=== PATIENT | female | born 1975 | race Caucasian/White ===

== ENCOUNTER 2020-03-15 08:28 | Emergency (ER) | payer MEDICARE ==
--- NOTE | 2020-03-15 09:05 | ERPHSYRPT ---
- History of Present Illness Time Seen by Provider: 03/15/20 08:37 Source: patient Patient Subjective Stated Complaint: Pt stated that when she woke this morning that she was dizzy Triage Nursing Assessment: Pt brought here to the ER by her partner, tachycardic, denies pain, pulses normal, right foot in a boot and states that she has 2 wounds that have MRSA, skin n/w/d, denies losing consciousness, pt reports that temitope arms have some numbness, doesn't appear to be in any distress Physician History: 44 yo wf w dizziness/lightheadedness x2.5hr. Pt denies focal weakness/BARRY/chest pain/dyspnea/fever/cough/coryza/otalgia/ringing-roaring in ears. Dizziness worse w movement. She has no h/o dizziness and currently is being treated for R foot ulcer. Timing/Duration: other (2.5hr) Severity: mild Deficits: off balance Baseline/Normal Cognition: alert oriented x 3 Current Cognition: alert oriented x 3 Baseline Gait: walks w/o assistance Associated Symptoms: No confusion, No fatigue, No fever, No chills, No loss of consciousness, No nausea, No vomiting, No weakness, No insomnia, No muscle spasms, No numbness/tingling in legs/feet, No paresthesia, No ringing in ears, N o seizures, No slurred speech, No trouble walking, No vision changes, No chest pain, No headache Allergies/Adverse Reactions: codeine Allergy (Verified 03/15/20 08:47) unknown self - father " very severe" pseudoephedrine HCl [From Actifed] Allergy (Verified 03/15/20 08:47) severe rash triprolidine HCl [From Actifed] Allergy (Verified 03/15/20 08:47) severe rash azithromycin Adverse Reaction (Verified 03/15/20 08:48) erythromycin base Adverse Reaction (Verified 03/15/20 08:48) Home Medications: Albuterol 8 gm Mdi Hfa [Ventolin Hfa MDI] 2 puffs IH BID 01/16/16 [History] Cyclobenzaprine HCl 10 mg [Flexeril 10 MG] 10 mg PO TID 01/16/16 [History] Furosemide 20 mg [Lasix 20 mg] 80 mg PO DAILY 01/16/16 [History] Glipizide 2.5 mg [Glucotrol Xl 2.5 MG] 15 mg PO DAILY 01/16/16 [History] Nintedanib Esylate [Ofev] 150 mg PO BID 01/16/16 [History] Olanzapine [Olanzapine Odt] 15 mg PO DAILY 01/16/16 [History] Potassium Chloride 10 Meq Tab* [Klor Con 10 MEQ] 20 meq PO DAILY 01/16/16 [History] Pravastatin Sodium 40 mg PO DAILY 01/16/16 [History] Prednisone 10 mg [Deltasone 10 mg] 5 mg PO DAILY 01/16/16 [History] lisinopriL [Prinivil] 20 mg PO DAILY 01/16/16 [History] Duloxetine HCl 30 mg [Cymbalta 30 MG Capsule] 60 mg PO HS 01/06/20 [History] Hydrocodone/APAP 5-325 Tab^^^ [[place] 5-325 Tablet^^^] 1 each PO BID MDD 6 01/06/20 [History] Doxepin HCl 75 mg PO HS 01/08/20 [History] Ergocalciferol (Vitamin D2) [Vitamin D2] 1,000 mcg PO UD 01/08/20 [History] Fluticasone/Salmeterol [Advair 250-50 Diskus] 1 each IH DAILY 01/08/20 [History] Hydroxychloroquine Sulfate [Plaquenil] 400 mg PO DAILY 01/08/20 [History] Insulin Aspart [Novolog] 15 unit SQ ACHS 01/08/20 [History] Insulin Detemir [Levemir] 30 unit SQ HS 01/08/20 [History] Multivitamin [Multivitamins] 1 each PO DAILY 01/08/20 [History] Omeprazole 40 mg PO DAILY 01/08/20 [History] Sitagliptin Phosphate 50 MG [Januvia 50 MG] 50 mg PO DAILY 01/08/20 [History] Upadacitinib [Rinvoq ER] 15 mg PO DAILY 01/08/20 [History] Gabapentin 100 mg PO TID 01/19/20 [History] Alendronate Sodium 70 mg [Fosamax 70 MG] 70 mg PO WEEKLY 03/15/20 [History] Diphenoxylate HCl/Atropine [Lomotil 2.5-0.025 mg Tablet] 1 tab PO UD PRN 03/15/20 [History] Travel Risk - International Travel Have you traveled outside of the country in past 3 weeks: No - Coronavirus Screening Are you exhibiting any of the following symptoms?: No Close contact with a COVID-19 positive Pt in past 14-21 Days: No - Review of Systems Constitutional: No Symptoms Eyes: No Symptoms Ears, Nose, & Throat: No Symptoms Respiratory: No Symptoms Cardiac: No Symptoms Abdominal/Gastrointestinal: No Symptoms Genitourinary Symptoms: No Symptoms Musculoskeletal: No Symptoms Skin: No Symptoms Neurological: Dizziness, No Focal Weakness, No Gait Changes, No Headache, No Irritability, No Lethargy, No Paralysis, No Parasthesia, No Seizure, No Sensory Changes, No Speech Changes, No Tics, No Tremors, No Vertigo Psychological: No Symptoms Endocrine: No Symptoms Hematologic/Lymphatic: No Symptoms Immunological/Allergic: No Symptoms All Other Systems: Reviewed and Negative - Past Medical History Pertinent Past Medical History: Yes Neurological History: No Pertinent History ENT History: No Pertinent History Cardiac History: Congestive Heart Failure, High Cholesterol, Hypertension Respiratory History: Other Endocrine Medical History: Diabetes Type II Musculoskeletal History: Rheumatoid Arthritis, Other GI Medical History: No Pertinent History History: Renal Disease Psycho-Social History: Anxiety, Depression Female Reproductive Disorders: No Pertinent History Other Medical History: PULMONARY FIBROSIS - USES 2L 02 CONTINUOUS AND USES CPAP AT NIGHT. RUPTURED DISC AT L4-5 20 YEARS AGO. - Past Surgical History Past Surgical History: Yes Neuro Surgical History: No Pertinent History Cardiac: No Pertinent History Respiratory: Chest Surgery Gastrointestinal: No Pertinent History Genitourinary: No Pertinent History Musculoskeletal: No Pertinent History Female Surgical History: No Pertinent History Other Surgical History: back surgery. anal fistula, abscess. VATS BX - Social History Smoking Status: Former smoker Exposure to second hand smoke: No Drug Use: none Patient Lives Alone: No - Female History Hx Now: No - Nursing Vital Signs Nursing Vital Signs: Initial Vital Signs Temperature 97.6 F 03/15/20 08:32 Pulse Rate 107 H 03/15/20 08:32 Blood Pressure 122/83 03/15/20 08:32 O2 Sat by Pulse Oximetry 100 03/15/20 08:32 Pain Scale Pain Intensity 0 - Isauro Coma Scale Best Eye Response ([place]): (4) open spontaneously Best Verbal Response (Isauro): (5) oriented Best Motor Response ([place]): (6) obeys commands [place] Total: 15 - Physical Exam General Appearance: no apparent distress Eye Exam: bilateral eye: normal inspection, PERRL, EOMI Ears, Nose, Throat Exam: normal ENT inspection, TMs normal, pharynx normal, moist mucous membranes Neck Exam: normal inspection, non-tender, supple, full range of motion, No meningismus, No mass, No Brudzinski Respiratory: normal breath sounds, lungs clear, airway intact Cardiovascular: tachycardia Gastrointestinal: soft, normal bowel sounds, No tenderness (Morbidly obese) Back Exam: normal inspection Extremity Exam: other (Walking boot RLE/Walking boot removed, foot ulcer x2, appear stable, no erythema or discharge) Peripheral Pulses: carotid (R): 2+, carotid (L): 2+ Mental Status: alert, oriented x 3, cooperative, No agitated, 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 Exam: normal hearing, normal speech, PERRL, No abnormal eye position, No abnormal gag reflex, No abnormal pupil position, No abnormal speech, No facial asymmetry, No facial droop, No facial paresthesias, No gaze palsy, No hearing deficit (R), No hearing deficit (L), No tongue deviation to R, No tongue deviation to L, No tongue midline Coordination/Gait: normal finger to nose Motor/Sensory: no motor deficit, no sensory deficit, no pronator drift DTR: bicep (R): 2+, bicep (L): 2+, knee (R): 2+, knee (L): 2+ Skin Exam: normal color, warm, dry, No rash SpO2 Interpretation: normal SpO2: 100 O2 Delivery: Room Air - Course EKG Interpreted by Me: RATE (R108/Sinus Tach/Poor R wave progression/Normal QT- QTc) - Radiology Exams Chest X-ray Interpretation: Discussed w/ radiologist (Nothing acute) - CT Exams Head CT Interpretation: Discussed w/radiologist (Nothing acute) Chest CT Interpretation: Discussed w/radiologist (Chronic diffuse alveolar opacities) Ordered Tests: Active Orders 24 hr Category Date Time Status EKG-ER Only STAT Care 03/15/20 08:42 Active IV Insertion STAT Care 03/15/20 08:42 Active CHEST 1 VIEW (PORTABLE) Stat Exams 03/15/20 10:16 Completed CHEST WITHOUT CONTRAST [CT] Stat Exams 03/15/20 10:21 Completed HEAD WITHOUT CONTRAST [CT] Stat Exams 03/15/20 08:43 Completed MRI BRAIN W/O CONTRAST [MRI] Stat Exams 03/15/20 11:13 Completed CBC W DIFF Stat Lab 03/15/20 09:20 Completed CMP Stat Lab 03/15/20 09:20 Completed Lactic Acid Routine Lab 03/15/20 12:47 Completed Lactic Acid Stat Lab 03/15/20 10:00 Completed PROTIME WITH INR Stat Lab 03/15/20 09:20 Completed PTT Stat Lab 03/15/20 09:20 Completed TROPONIN Q3H Lab 03/15/20 09:20 Completed TROPONIN Q3H Lab 03/15/20 12:38 Completed TROPONIN Q3H Lab 03/15/20 14:45 Ordered TROPONIN Q3H Lab 03/15/20 17:45 Ordered TROPONIN Q3H Lab 03/15/20 20:45 Ordered UA W/RFX UR CULTURE Stat Lab 03/15/20 09:34 Completed Medication Summary Generic Name Dose Route Start Last Admin Trade Name Freq PRN Reason Stop Dose Admin Ceftriaxone Sodium 1,000 mg/ 100 mls @ 100 mls/hr 03/15/20 13:18 03/15/20 13:19 Sodium Chloride IV 03/15/20 14:17 Not Given STAT ONE Ceftriaxone Sodium/Dextrose 1 g in 50 mls @ 100 mls/hr 03/15/20 13:19 03/15/20 13:24 Rocephin 1 Gm-D5w 50 Ml Bag IV 03/15/20 13:48 100 ml/hr STAT STA 100 mls/hr Administration Discontinued Medications Generic Name Dose Route Start Last Admin Trade Name Freq PRN Reason Stop Dose Admin Sodium Chloride 1,000 mls @ 999 mls/hr 03/15/20 10:38 03/15/20 12:13 Sodium Chloride 0.9% 1000 Ml IV 03/15/20 11:38 Infused .Q1H1M STA Infusion Sodium Chloride Confirm 03/15/20 11:08 Sodium Chloride 0.9% 1000 Ml Administered 03/15/20 11:09 Dose 1,000 mls @ ud .ROUTE .STK-MED ONE Ceftriaxone Sodium/Dextrose Confirm 03/15/20 13:22 Rocephin 1 Gm-D5w 50 Ml Bag Administered 03/15/20 13:23 Dose 1 g in 50 mls @ ud IV .STK-MED ONE Lab/Rad Data: Laboratory Result Diagrams 03/15/20 09:20 03/15/20 09:20 Laboratory Results 03/15/20 03/15/20 03/15/20 Range/Units 12:47 12:38 10:00 WBC (4.0-10.5) K/mm3 RBC (4.1-5.4) M/mm3 Hgb (12.0-16.0) gm/dl Hct (35-47) % MCV (78-100) fl MCH (26-32) pg MCHC (32-36) g/dl RDW (11.5-14.0) % Plt Count (150-450) K/mm3 MPV (7.5-11.0) fl Gran % (36.0-66.0) % Eos # (Auto) (0-0.5) Absolute Lymphs (auto) (1.0-4.6) Absolute Monos (auto) (0.0-1.3) Lymphocytes % (24.0-44.0) % Monocytes % (0.0-12.0) % Eosinophils % (0.00-5.0) % Basophils % (0.0-0.4) % Absolute Granulocytes (1.4-6.9) Basophils # (0-0.4) PT (9.95-12.35) SECONDS INR (0.8-3.0) APTT (25.3-37.0) SECONDS Sodium (137-145) mmol/L Potassium (3.5-5.1) mmol/L Chloride (98-107) mmol/L Carbon Dioxide (22-30) mmol/L Anion Gap (5-15) MEQ/L BUN (7-17) mg/dL Creatinine (0.52-1.04) mg/dL Estimated GFR ML/MIN Glucose (74-106) mg/dL Lactic Acid 1.6 2.7 H (0.4-2.0) Calcium (8.4-10.2) mg/dL Total Bilirubin (0.2-1.3) mg/dL AST (14-36) U/L ALT (0-35) U/L Alkaline Phosphatase (38-126) U/L Troponin I < 0.012 (0.000-0.034) ng/mL Serum Total Protein (6.3-8.2) g/dL Albumin (3.5-5.0) g/dL Urine Color (YELLOW) Urine Appearance (CLEAR) Urine pH (5-6) Ur Specific [place] (1.005-1.025) Urine Protein (Negative) Urine Ketones (NEGATIVE) Urine Blood (0-5) Kelvin/ul Urine Nitrite (NEGATIVE) Urine Bilirubin (NEGATIVE) Urine Urobilinogen (0-1) mg/dL Ur Leukocyte Esterase (NEGATIVE) Urine WBC (Auto) (0-5) /HPF Urine RBC (Auto) (0-2) /HPF U Hyaline Cast (Auto) (0-2) /LPF U Epithel Cells (Auto) (FEW) /HPF Urine Bacteria (Auto) (NEGATIVE) /HPF Urine Mucus (Auto) (NEGATIVE) /HPF Urine Culture Reflexed (NO) Urine Glucose (NEGATIVE) mg/dL Slides for Path Review 03/15/20 03/15/20 03/15/20 Range/Units 09:34 09:20 09:20 WBC (4.0-10.5) K/mm3 RBC (4.1-5.4) M/mm3 Hgb (12.0-16.0) gm/dl Hct (35-47) % MCV (78-100) fl MCH (26-32) pg MCHC (32-36) g/dl RDW (11.5-14.0) % Plt Count (150-450) K/mm3 MPV (7.5-11.0) fl Gran % (36.0-66.0) % Eos # (Auto) (0-0.5) Absolute Lymphs (auto) (1.0-4.6) Absolute Monos (auto) (0.0-1.3) Lymphocytes % (24.0-44.0) % Monocytes % (0.0-12.0) % Eosinophils % (0.00-5.0) % Basophils % (0.0-0.4) % Absolute Granulocytes (1.4-6.9) Basophils # (0-0.4) PT 12.4 H (9.95-12.35) SECONDS INR 1.10 (0.8-3.0) APTT 29.2 (25.3-37.0) SECONDS Sodium (137-145) mmol/L Potassium (3.5-5.1) mmol/L Chloride (98-107) mmol/L Carbon Dioxide (22-30) mmol/L Anion Gap (5-15) MEQ/L BUN (7-17) mg/dL Creatinine (0.52-1.04) mg/dL Estimated GFR ML/MIN Glucose (74-106) mg/dL Lactic Acid (0.4-2.0) Calcium (8.4-10.2) mg/dL Total Bilirubin (0.2-1.3) mg/dL AST (14-36) U/L ALT (0-35) U/L Alkaline Phosphatase (38-126) U/L Troponin I 0.013 (0.000-0.034) ng/mL Serum Total Protein (6.3-8.2) g/dL Albumin (3.5-5.0) g/dL Urine Color YELLOW (YELLOW) Urine Appearance SLIGHTLY CLOUDY (CLEAR) Urine pH 5.0 (5-6) Ur Specific [place] 1.012 (1.005-1.025) Urine Protein NEGATIVE (Negative) Urine Ketones NEGATIVE (NEGATIVE) Urine Blood NEGATIVE (0-5) Kelvin/ul Urine Nitrite NEGATIVE (NEGATIVE) Urine Bilirubin NEGATIVE (NEGATIVE) Urine Urobilinogen NEGATIVE (0-1) mg/dL Ur Leukocyte Esterase TRACE (NEGATIVE) Urine WBC (Auto) 3-5 (0-5) /HPF Urine RBC (Auto) 3-5 (0-2) /HPF U Hyaline Cast (Auto) >50 (0-2) /LPF U Epithel Cells (Auto) FEW (FEW) /HPF Urine Bacteria (Auto) RARE (NEGATIVE) /HPF Urine Mucus (Auto) SLIGHT (NEGATIVE) /HPF Urine Culture Reflexed NO (NO) Urine Glucose NEGATIVE (NEGATIVE) mg/dL Slides for Path Review 03/15/20 03/15/20 Range/Units 09:20 09:20 WBC 19.5 H (4.0-10.5) K/mm3 RBC 4.13 (4.1-5.4) M/mm3 Hgb 11.9 L (12.0-16.0) gm/dl Hct 38.1 (35-47) % MCV 92.3 (78-100) fl MCH 28.8 (26-32) pg MCHC 31.2 L (32-36) g/dl RDW 14.7 H (11.5-14.0) % Plt Count 539 H (150-450) K/mm3 MPV 9.4 (7.5-11.0) fl Gran % 78.9 H (36.0-66.0) % Eos # (Auto) 0.02 (0-0.5) Absolute Lymphs (auto) 2.29 (1.0-4.6) Absolute Monos (auto) 1.73 H (0.0-1.3) Lymphocytes % 11.8 L (24.0-44.0) % Monocytes % 8.9 (0.0-12.0) % Eosinophils % 0.1 (0.00-5.0) % Basophils % 0.3 (0.0-0.4) % Absolute Granulocytes 15.39 H (1.4-6.9) Basophils # 0.05 (0-0.4) PT (9.95-12.35) SECONDS INR (0.8-3.0) APTT (25.3-37.0) SECONDS Sodium 132 L (137-145) mmol/L Potassium 4.2 (3.5-5.1) mmol/L Chloride 92 L (98-107) mmol/L Carbon Dioxide 29 (22-30) mmol/L Anion Gap 14.6 (5-15) MEQ/L BUN 36 H (7-17) mg/dL Creatinine 1.87 H (0.52-1.04) mg/dL Estimated GFR 30.8 ML/MIN Glucose 182 H (74-106) mg/dL Lactic Acid (0.4-2.0) Calcium 9.4 (8.4-10.2) mg/dL Total Bilirubin 0.50 (0.2-1.3) mg/dL AST 29 (14-36) U/L ALT 31 (0-35) U/L Alkaline Phosphatase 63 (38-126) U/L Troponin I (0.000-0.034) ng/mL Serum Total Protein 8.0 (6.3-8.2) g/dL Albumin 4.3 (3.5-5.0) g/dL Urine Color (YELLOW) Urine Appearance (CLEAR) Urine pH (5-6) Ur Specific [place] (1.005-1.025) Urine Protein (Negative) Urine Ketones (NEGATIVE) Urine Blood (0-5) Kelvin/ul Urine Nitrite (NEGATIVE) Urine Bilirubin (NEGATIVE) Urine Urobilinogen (0-1) mg/dL Ur Leukocyte Esterase (NEGATIVE) Urine WBC (Auto) (0-5) /HPF Urine RBC (Auto) (0-2) /HPF U Hyaline Cast (Auto) (0-2) /LPF U Epithel Cells (Auto) (FEW) /HPF Urine Bacteria (Auto) (NEGATIVE) /HPF Urine Mucus (Auto) (NEGATIVE) /HPF Urine Culture Reflexed (NO) Urine Glucose (NEGATIVE) mg/dL Slides for Path Review YES - Progress Progress: improved Progress Note: 03/15/20 12:49 MRI Brain neg per Rad Dizziness resolved wo treatment 03/15/20 12:55 Pt's LA declined after 1L NS bolus. Leukocytosis most likely due to steroids for RA, as only evidence of infection is a few WBC's in urine. Pt states that she has chronic uti's and was recently treated. She is currently on keflex for her R foot ulcers. 03/15/20 13:30 Pt given 1gm IV rocephin before discharge. Counseled pt/family regarding: lab results, diagnosis, need for follow-up, rad results - Departure Departure Disposition: Home Clinical Impression: Dizziness, nonspecific, Leukocytosis, Elevated lactic acid level Condition: Stable Critical Care Time: No Referrals: KIRSTEN SCRUGGS [Primary Care Provider] - Instructions: Vertigo (a Type of Dizziness) (DC), Dizziness, Nonvertigo, (DC) Additional Instructions: Follow up with your family MD Return to ER for focal weakness/Temperature greater than 100.5/Chest pain/shortness of breath
--- NOTE | 2020-03-15 09:25 | XRAY ---
Indication: Lightheaded and dizziness. Multiple contiguous axial images obtained through the head without contrast. Comparison: None Normal appearing brain parenchyma, ventricles, and bony calvarium. Partial opacification of right mastoid air cells presumed inflammatory. Remaining visualized paranasal sinuses and left mastoid air cells are clear. Impression: Partial opacification right mastoid air cells presumed inflammatory. Remaining CT head without contrast exam is normal.
[2020-03-15 09:32] LABS: Absolute Neutrophil Ct (ANC) 15.39 (1.4-6.9); BASOPHIL % 0.3 % (0.0-0.4); Basophil (Absolute #) 0.05 (0-0.4); Eosinophil % 0.1 % (0.00-5.0); Eosinophil (Absolute #) 0.02 (0-0.5); Hematocrit 38.1 % (35-47); Hemoglobin 11.9 gm/dl (12.0-16.0); Lymphocyte (Absolute #) 2.29 (1.0-4.6); Lymphocytes % 11.8 % (24.0-44.0); Mean Cell Volume 92.3 fl (78-100); Mean Corpuscular Hemoglobin 28.8 pg (26-32); Mean Corpuscular Hgb Concent. 31.2 g/dl (32-36); Mean Platelet Volume 9.4 fl (7.5-11.0); Monocyte (Absolute #) 1.73 (0.0-1.3); Monocytes % 8.9 % (0.0-12.0); Neutrophil % 78.9 % (36.0-66.0); Platelet Count 539 K/mm3 (150-450); Red Blood Count 4.13 M/mm3 (4.1-5.4); Red Cell Distribution Width 14.7 % (11.5-14.0); White Blood Count 19.5 K/mm3 (4.0-10.5)
[2020-03-15 09:44] LABS: INR 1.1 (0.8-3.0); PROTIME 12.4 SECONDS (9.95-12.35)
[2020-03-15 09:47] LABS: PTT 29.2 SECONDS (25.3-37.0)
[2020-03-15 09:48] LABS: ALBUMIN 4.3 g/dL (3.5-5.0); ANION GAP 14.6 MEQ/L (5-15); BILIRUBIN,TOTAL 0.5 mg/dL (0.2-1.3); Calcium 9.4 mg/dL (8.4-10.2); Creatinine 1 1.87 mg/dL (0.52-1.04); EST GLOMERULAR FILTRATION RATE 30.8 ML/MIN; Potassium 4.2 mmol/L (3.5-5.1)
[2020-03-15 10:12] LABS: Appearance SLIGHTLY CLOUDY (CLEAR); Bacteria RARE /HPF (NEGATIVE); Bilirubin NEGATIVE (NEGATIVE); Blood NEGATIVE Ery/ul (0-5); Epithelial Cells FEW /HPF (FEW); Glucose NEGATIVE (NEGATIVE); Hyaline Casts >50 /LPF (0-2); Ketones NEGATIVE (NEGATIVE); Leukocyte Esterase TRACE (NEGATIVE); Mucus SLIGHT /HPF (NEGATIVE); Nitrite NEGATIVE (NEGATIVE); Protein,Urine Dip NEGATIVE (Negative); Specific Gravity 1.012 (1.005-1.025); Urobilinogen NEGATIVE mg/dL (0-1)
--- NOTE | 2020-03-15 10:52 | XRAY ---
Indication: Leukocytosis. Comparison: None Portable chest demonstrates diffuse interstitial alveolar opacities without consolidation/large effusion. Heart is not enlarged. Bony thorax intact with mild degenerative changes.
--- NOTE | 2020-03-15 10:57 | XRAY ---
Indication: Leukocytosis. Multiple contiguous axial images obtained through the chest without contrast as ordered. Comparison: February 04, 2015. Lungs again demonstrates chronic appearing diffuse patchy interstitial alveolar opacities without consolidation or large effusion. Heart is not enlarged. Aorta again mildly arteriosclerotic without aneurysm. No pathologic mediastinal lymphadenopathy. Bony thorax intact again with mild degenerative changes throughout the spine. Limited upper abdomen again demonstrates mild fatty liver and 2 cm gallstone. Impression: Stable CT chest without contrast exam again demonstrating chronic appearing diffuse bilateral interstitial alveolar opacities, fatty liver, and cholelithiasis.
[2020-03-15] MEDS ORDERED: Sodium Chloride 0.9% 1000 ML 1,000 ML ONE (11:08)
[2020-03-15] MEDS: Sodium Chloride 0.9% 1000 ML 1,000 ML IV STA (11:09)
[2020-03-15 11:19] LABS: Slide Review 1 YES
--- NOTE | 2020-03-15 12:43 | XRAY ---
Indication: Dizziness. Near-syncope. Sagittal, coronal, and axial MRI brain was performed without contrast using T1, T2, FLAIR, diffusion, and ADC sequences. Comparison: None Ventriculosulcal pattern appears symmetric. Anatomic variant for empty sella. No acute intracranial hemorrhage, abnormal extra-axial fluid collection, or mass effect. Diffusion images are negative for restricted signal. Fourth ventricle is midline without hydrocephalus. 7/8 cranial nerve complex bilaterally symmetric. Normal flow void signal within the major intracerebral circulation. Normal appearing craniocervical junction. Paranasal sinuses are clear. Minimal fluid signal in the right mastoid air cells presumed inflammatory. Impression: 1. Minimal fluid signal right mastoid air cells presumed inflammatory. 2. Remaining MRI brain without contrast exam is negative.
[2020-03-15] MEDS: Rocephin 1000 MG INJ** 1,000 MG in Sodium Chloride 0.9% 100 ML IVPB 100 ML IV ONE (13:19)
[2020-03-15] MEDS ORDERED: ROCEPHIN 1 Gm-D5w 50 ml Bag** 1 G/50 ML IVPB IV ONE (13:22)
[2020-03-15] MEDS: ROCEPHIN 1 Gm-D5w 50 ml Bag** 1 G/50 ML IVPB IV STA (13:24)
[2020-03-15 13:38] VITALS: BP 109/72; PULSE 100; O2SAT 99
== END 2020-03-15 13:46 | disposition home or self-care (01) ==
LOC: ED 08:28
DX: R42 Dizziness and giddiness (principal); R74.02 Elevation of levels of lactic acid dehydrogenase [LDH]; Z79.899 Other long term (current) drug therapy
CPT/HCPCS: 36000; 36415; 70450; 70551; 71045; 71250; 80053; 81001; 83605; 84484; 85025; 85610; 85730; 93005; 96360; 99284; J0696

== ENCOUNTER 2020-05-17 01:47 | Emergency (ER) | payer MEDICARE ==
[2020-05-17] MEDS ORDERED: Sodium Chloride 0.9% 1000 ML 1,000 ML IV SCH (02:00)
[2020-05-17] MEDS ORDERED: Sodium Chloride 0.9% 1000 ML 1,000 ML ONE ×3 (02:02→03:49)
[2020-05-17] MEDS ORDERED: solu-CORTEF 100MG IV ONE (02:06)
[2020-05-17] MEDS ORDERED: VANCOMYCIN 1 GRAM/200 ML BAG 1 GM/200 ML PIGGYBACK IV ONE ×2 (02:12→02:44)
[2020-05-17] MEDS ORDERED: Zosyn 3.375 GM Vial 3.375 GM in Sodium Chloride 100ML MINI-BAG PLUS 100 ML IV ONE (02:13)
[2020-05-17 02:35] LABS: ALBUMIN 3.6 g/dL (3.5-5.0); BILIRUBIN,TOTAL 0.9 mg/dL (0.2-1.3); Calcium 7.9 mg/dL (8.4-10.2); Creatinine 1 7.12 mg/dL (0.52-1.04); EST GLOMERULAR FILTRATION RATE 6.6 ML/MIN; MAGNESIUM 1.9 mg/dL (1.6-2.3); Total Protein 7.1 g/dL (6.3-8.2)
[2020-05-17] MEDS ORDERED: Zosyn 3.375 GM Vial IV ONE (02:43)
[2020-05-17] MEDS ORDERED: solu-CORTEF 100MG ONE (02:43)
[2020-05-17] MEDS ORDERED: Sodium Chloride 0.9% 100 ML IVPB 100 ML IV ONE (02:44)
--- NOTE | 2020-05-17 02:45 | ERPHSYRPT ---
- History of Present Illness Time Seen by Provider: 05/17/20 01:55 Source: patient, EMS Exam Limitations: no limitations Patient Subjective Stated Complaint: pt states she has had increasing weakness over the last few days. tonight she slid out of bed and was not able to get up off the floor. Triage Nursing Assessment: pt alert and oriented,, answers questions approp. pt arrive per wheelchair, was unable to move to stretcher per self. pt to stretcher with assist of 4. respirations nonlabored. Physician History: Patient is a 44-year-old female presents to our ED via EMS for evaluation of generalized weakness. Patient states she has been feeling progressively weak over the past few days. Patient was in her bed this evening when she slipped out of bed onto the floor. No injuries sustained. Patient states she was too weak to climb back into bed. 911 was notified. Patient required max assist x4 to get her onto the stretcher. Upon arrival patient looked weak and lethargic. Her extremities are mottled. Patient states she felt dizzy. No chest pain or shortness of breath. Patient states she has a history of chronic renal sufficiency. Symptoms are moderate in intensity. No specific worsening or impr oving factors. Patient voices no other complaints or concerns at this time. Patient advises that she has a history of pulmonary fibrosis. Patient requires 2 L nasal cannula 24 hours/day. Timing/Duration: day(s) Severity: severe (Days ago.) Modifying Factors: Improves With: nothing Associated Symptoms: weakness (Generalized weakness), No nausea, No vomiting, No abdominal pain, No shortness of breath, No heartburn, No diaphoresis, No cough, No chills, No chest pain, No fever, No headaches, No loss of appetite, No syncope, No seizure Allergies/Adverse Reactions: codeine Allergy (Verified 04/19/20 09:08) unknown self - father " very severe" pseudoephedrine HCl [From Actifed] Allergy (Verified 04/19/20 09:08) severe rash triprolidine HCl [From Actifed] Allergy (Verified 04/19/20 09:08) severe rash azithromycin Adverse Reaction (Verified 04/19/20 09:08) erythromycin base Adverse Reaction (Verified 04/19/20 09:08) Home Medications: Albuterol 8 gm Mdi Hfa [Ventolin Hfa MDI] 2 puffs IH BID 01/16/16 [History] Cyclobenzaprine HCl 10 mg [Flexeril 10 MG] 10 mg PO TID 01/16/16 [History] Furosemide 20 mg [Lasix 20 mg] 80 mg PO DAILY 01/16/16 [History] Glipizide 2.5 mg [Glucotrol Xl 2.5 MG] 15 mg PO DAILY 01/16/16 [History] Nintedanib Esylate [Ofev] 150 mg PO BID 01/16/16 [History] Olanzapine [Olanzapine Odt] 15 mg PO DAILY 01/16/16 [History] Potassium Chloride 10 Meq Tab* [Klor Con 10 MEQ] 20 meq PO DAILY 01/16/16 [History] Pravastatin Sodium 40 mg PO DAILY 01/16/16 [History] Prednisone 10 mg [Deltasone 10 mg] 5 mg PO DAILY 01/16/16 [History] lisinopriL [Prinivil] 20 mg PO DAILY 01/16/16 [History] Duloxetine HCl 30 mg [Cymbalta 30 MG Capsule] 60 mg PO HS 01/06/20 [History] Hydrocodone/APAP 5-325 Tab^^^ [[place] 5-325 Tablet^^^] 1 each PO BID MDD 6 01/06/20 [History] Doxepin HCl 75 mg PO HS 01/08/20 [History] Ergocalciferol (Vitamin D2) [Vitamin D2] 1,000 mcg PO UD 01/08/20 [History] Fluticasone/Salmeterol [Advair 250-50 Diskus] 1 each IH DAILY 01/08/20 [History] Hydroxychloroquine Sulfate [Plaquenil] 400 mg PO DAILY 01/08/20 [History] Insulin Aspart [Novolog] 15 unit SQ ACHS 01/08/20 [History] Insulin Detemir [Levemir] 30 unit SQ HS 01/08/20 [History] Multivitamin [Multivitamins] 1 each PO DAILY 01/08/20 [History] Omeprazole 40 mg PO DAILY 01/08/20 [History] Sitagliptin Phosphate 50 MG [Januvia 50 MG] 50 mg PO DAILY 01/08/20 [History] Upadacitinib [Rinvoq ER] 15 mg PO DAILY 01/08/20 [History] Gabapentin 100 mg PO TID 01/19/20 [History] Alendronate Sodium 70 mg [Fosamax 70 MG] 70 mg PO WEEKLY 03/15/20 [History] Diphenoxylate HCl/Atropine [Lomotil 2.5-0.025 mg Tablet] 1 tab PO UD PRN 03/15/20 [History] Calcium Carbonate/Vitamin D3 [Vitamin D-3 400 Units Tablet] 1 each PO BID 03/25/20 [History] Cyanocobalamin (Vitamin B-12) [Vitamin B12] 2,500 mcg PO DAILY 03/25/20 [History] Hx Tetanus, Diphtheria Vaccination/Date Given: No Hx Influenza Vaccination/Date Given: Yes Hx Pneumococcal Vaccination/Date Given: Yes Immunizations Up to Date: No Travel Risk - International Travel Have you traveled outside of the country in past 3 weeks: No - Coronavirus Screening Are you exhibiting any of the following symptoms?: Yes Symptoms: Shortness of Breath, Headaches/Body Aches/Fatigue Close contact with a COVID-19 positive Pt in past 14-21 Days: No - Review of Systems Constitutional: Other (Cool skin to touch.) Eyes: No Symptoms, No Discharge, No Tearing, No Vision Changes, No Foreign Body Sensation Ears, Nose, & Throat: No Symptoms, No Ear Discharge, No Hearing Changes, No Nose Discharge, No Sinus Drainage, No Mouth Swelling, No Throat Swelling, No Hoarse, No Painful Swallowing Respiratory: No Cough, No Stridor, No Wheezing Cardiac: No Chest Pain, No Edema, No Palpitations Abdominal/Gastrointestinal: No No Symptoms, No Abdominal Pain, No Nausea, No Vomiting, No Constipation, No Hematemesis Genitourinary Symptoms: No Symptoms Musculoskeletal: No Symptoms Skin: No Symptoms, Other (Sacral decubiti ulcers and right lower extremity chronic wound.) Neurological: Dizziness, No Focal Weakness Psychological: No Symptoms Hematologic/Lymphatic: No Symptoms Immunological/Allergic: No Symptoms All Other Systems: Unable due to condition - Past Medical History Pertinent Past Medical History: Yes Neurological History: No Pertinent History ENT History: No Pertinent History Cardiac History: High Cholesterol, Hypertension Respiratory History: Other Endocrine Medical History: Diabetes Type II, Liver Disease, Other Musculoskeletal History: Rheumatoid Arthritis GI Medical History: No Pertinent History History: Renal Disease Psycho-Social History: Anxiety, Depression Female Reproductive Disorders: No Pertinent History Other Medical History: CHRONIC KIDNEY DISEASE STAGE 2, BEING SENT TO HEPATIC SPECIALIST AFTER SONOGRAM OF LIVER SHOW FATTY OR FIBROTIC CHANGES. PULMONARY FIBROSIS X 6 YEARS USES O2 VIA NC @ 2 LITERS. - Past Surgical History Past Surgical History: Yes Neuro Surgical History: No Pertinent History Cardiac: No Pertinent History Respiratory: Chest Surgery Gastrointestinal: No Pertinent History Genitourinary: No Pertinent History Musculoskeletal: No Pertinent History Female Surgical History: No Pertinent History Other Surgical History: back surgery. anal fistula, abscess. VATS BX - Social History Smoking Status: Former smoker Exposure to second hand smoke: Yes Drug Use: none Patient Lives Alone: No - Female History Hx Last Menstrual Period: post Hx Now: No - Nursing Vital Signs Nursing Vital Signs: Initial Vital Signs Temperature 98.4 F 05/17/20 01:51 Pulse Rate 99 H 05/17/20 01:51 Respiratory Rate 20 05/17/20 01:51 Blood Pressure 77/63 05/17/20 01:51 O2 Sat by Pulse Oximetry 98 05/17/20 01:51 Pain Scale Pain Intensity 3 - Physical Exam General Appearance: obese, other (Patient appears weak and dehydrated.) Eye Exam: PERRL/EOMI Ears, Nose, Throat Exam: dry mucous membranes Neck Exam: normal inspection, supple, full range of motion, No non-tender Respiratory Exam: normal breath sounds, lungs clear, No chest tenderness, No respiratory distress Cardiovascular Exam: regular rate/rhythm Gastrointestinal/Abdomen Exam: soft, normal bowel sounds, No tenderness, No distention Back Exam: other (Multiple sacral pressure ulcer in various stages,) Extremity Exam: other (Extremities are cool to touch and mottled. Right lower extremity dressing intact), No calf tenderness, No deformities, No lacerations, No jose's sign Neurologic Exam: alert, oriented x 3, cooperative, aircraft designer II-XII nml as tested, normal mood/affect, sensation nml, No motor deficits, No sensory deficit Skin Exam: other (Skin cool to touch. Hands appear somewhat mottled. Sacral pressure ulcers in various stages of healing.) Lymphatic Exam: No adenopathy SpO2 Interpretation: normal SpO2: 100 O2 Delivery: Room Air - Course Nursing assessment & vital signs reviewed: Yes EKG Interpreted by Me: RATE (96), Sinus Rhythm, NORMAL AXIS, NORMAL INTERVALS - Radiology Exams Chest X-ray Interpretation: Teleradiologist Report (Distal pulmonary fibrosis. 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 Care 05/17/20 01:53 Active EKG-ER Only STAT Care 05/17/20 01:51 Active IV Insertion STAT Care 05/17/20 01:51 Active Pulse Oximetry (ED) STAT Care 05/17/20 01:51 Active CHEST 1 VIEW (PORTABLE) Stat Exams 05/17/20 01:53 Taken BLOOD CULTURE Stat Lab 05/17/20 02:45 Received CBC W DIFF Stat Lab 05/17/20 02:10 Completed CMP Stat Lab 05/17/20 02:10 Completed INFLUENZA A+B ALBER Stat Lab 05/17/20 02:45 Completed Lactic Acid Stat Lab 05/17/20 02:25 Completed Lactic Acid Stat Lab 05/17/20 04:26 Completed Lactic Acid Stat Lab 05/17/20 04:36 Received MAGNESIUM Stat Lab 05/17/20 02:10 Completed Manual Differential NC Stat Lab 05/17/20 02:10 Completed NT PRO BNP Stat Lab 05/17/20 02:10 Completed TROPONIN Q3H Lab 05/17/20 02:10 Completed TROPONIN Q3H Lab 05/17/20 05:00 Ordered TROPONIN Q3H Lab 05/17/20 08:00 Ordered TROPONIN Q3H Lab 05/17/20 11:00 Ordered TROPONIN Q3H Lab 05/17/20 14:00 Ordered TSH [TSH, 3RD Generation] Stat Lab 05/17/20 02:45 Completed UA W/RFX UR CULTURE Stat Lab 05/17/20 02:36 Ordered Medication Summary Generic Name Dose Route Start Last Admin Trade Name Freq PRN Reason Stop Dose Admin Sodium Chloride 1,000 mls @ 100 mls/hr 05/17/20 02:00 05/17/20 03:15 Sodium Chloride 0.9% 1000 Ml IV 06/16/20 01:59 100 mls/hr .Q10H BABAR Administration Sodium Bicarbonate 75 meq/ 1,075 mls @ 75 mls/hr 05/17/20 03:00 05/17/20 03:39 Dextrose/Sodium Chloride IV 06/16/20 02:59 75 ml/hr .[id number] BABAR 75 mls/hr Administration Norepinephrine 4,000 mcg/ 504 mls @ 37.8 mls/hr 05/17/20 03:17 05/17/20 04:16 Dextrose IV 06/16/20 03:16 5 mcg/min .[id number] PRN 37.8 mls/hr SEVERE HYPOTENSION Administration Protocol 5 MCG/MIN Discontinued Medications Generic Name Dose Route Start Last Admin Trade Name Freq PRN Reason Stop Dose Admin Calcium Gluconate 1,000 mg 05/17/20 02:56 05/17/20 03:33 Calcium Gluconate 10% 1000 Mg IV 05/17/20 02:57 1,000 mg STAT ONE Administration Calcium Gluconate Confirm 05/17/20 03:27 Calcium Gluconate 10% 1000 Mg Administered 05/17/20 03:28 Dose 1,000 mg IV .STK-MED ONE Dextrose 100 ml 05/17/20 03:01 05/17/20 04:00 D50w 50ml Vial IV 05/17/20 03:02 Not Given ONCE STA Dextrose Confirm 05/17/20 03:44 D50w 50 Ml Abboject Administered 05/17/20 03:45 Dose 100 ml IV .STK-MED ONE Dextrose 100 ml 05/17/20 03:46 05/17/20 03:47 D50w 50 Ml Abboject IV 05/17/20 03:47 100 ml STAT ONE Administration Hydrocortisone Sodium Succinate 100 mg 05/17/20 02:06 05/17/20 02:59 Solu-Cortef 100mg IV 05/17/20 02:07 100 mg STAT ONE Administration Hydrocortisone Sodium Succinate Confirm 05/17/20 02:43 Solu-Cortef 100mg Administered 05/17/20 02:44 Dose 100 mg .ROUTE .STK-MED ONE Vancomycin HCl 1 gm in 200 mls @ 125 mls/hr 05/17/20 02:12 05/17/20 03:00 Vancomycin 1 Gram/200 Ml Bag IV 05/17/20 03:47 125 mls/hr STAT ONE 125 mls/hr Administration Piperacillin Sod/Tazobactam 100 mls @ 200 mls/hr 05/17/20 02:13 05/17/20 02:56 Sod 3.375 gm/ Sodium Chloride IV 05/17/20 02:42 200 mls/hr STAT ONE Administration Sodium Chloride Confirm 05/17/20 02:44 Sodium Chloride 0.9% 100 Ml Ivpb Administered 05/17/20 02:45 Dose 100 mls @ ud IV .STK-MED ONE Vancomycin HCl Confirm 05/17/20 02:44 Vancomycin 1 Gram/200 Ml Bag Administered 05/17/20 02:45 Dose 1 gm in 200 mls @ ud IV .STK-MED ONE Dextrose/Sodium Chloride Confirm 05/17/20 03:30 Dextrose 5% -0.45 Nacl 1000 Ml Administered 05/17/20 03:31 Dose 1,000 mls @ ud IV .STK-MED ONE Insulin Human Regular 8 unit 05/17/20 03:02 05/17/20 04:00 Humulin R SQ 05/17/20 03:03 Not Given STAT ONE Insulin Human Regular 10 unit 05/17/20 03:40 05/17/20 03:47 Humulin R SQ 05/17/20 03:41 10 unit STAT ONE Administration Insulin Human Regular Confirm 05/17/20 03:43 Humulin R Administered 05/17/20 03:44 Dose 10 unit .ROUTE .STK-MED ONE Piperacillin Sod/Tazobactam Sod Confirm 05/17/20 02:43 Zosyn 3.375 Gm Vial Administered 05/17/20 02:44 Dose 3.375 gm IV .STK-MED ONE Sodium Bicarbonate Confirm 05/17/20 03:30 Sodium Bicarbonate 50 Meq/50 Ml Abboject Administered 05/17/20 03:31 Dose 100 meq IV .STK-MED ONE Lab/Rad Data: Laboratory Result Diagrams 05/17/20 02:10 05/17/20 02:10 Laboratory Results 05/17/20 05/17/20 05/17/20 Range/Units 04:26 02:45 02:45 WBC (4.0-10.5) K/mm3 RBC (4.1-5.4) M/mm3 Hgb (12.0-16.0) gm/dl Hct (35-47) % MCV (78-100) fl MCH (26-32) pg MCHC (32-36) g/dl RDW (11.5-14.0) % Plt Count (150-450) K/mm3 MPV (7.5-11.0) fl Sodium (137-145) mmol/L Potassium (3.5-5.1) mmol/L Chloride (98-107) mmol/L Carbon Dioxide (22-30) mmol/L Anion Gap (5-15) MEQ/L BUN (7-17) mg/dL Creatinine (0.52-1.04) mg/dL Estimated GFR ML/MIN Glucose (74-106) mg/dL Lactic Acid 1.4 (0.4-2.0) Calcium (8.4-10.2) mg/dL Magnesium (1.6-2.3) mg/dL Total Bilirubin (0.2-1.3) mg/dL AST (14-36) U/L ALT (0-35) U/L Alkaline Phosphatase (38-126) U/L Troponin I (0.000-0.034) ng/mL NT-Pro-B Natriuret Pep (0-450) pg/mL Serum Total Protein (6.3-8.2) g/dL Albumin (3.5-5.0) g/dL TSH 3rd Generation 1.390 (0.47-4.68) mIU/L Influenza Type A Ag POSITIVE (NEGATIVE) Influenza Type B Ag POSITIVE (NEGATIVE) 05/17/20 05/17/20 05/17/20 Range/Units 02:25 02:10 02:10 WBC 25.4 H* (4.0-10.5) K/mm3 RBC 3.92 L (4.1-5.4) M/mm3 Hgb 10.8 L (12.0-16.0) gm/dl Hct 34.1 L (35-47) % MCV 87.0 (78-100) fl MCH 27.6 (26-32) pg MCHC 31.7 L (32-36) g/dl RDW 14.8 H (11.5-14.0) % Plt Count 578 H (150-450) K/mm3 MPV 10.1 (7.5-11.0) fl Sodium (137-145) mmol/L Potassium (3.5-5.1) mmol/L Chloride (98-107) mmol/L Carbon Dioxide (22-30) mmol/L Anion Gap (5-15) MEQ/L BUN (7-17) mg/dL Creatinine (0.52-1.04) mg/dL Estimated GFR ML/MIN Glucose (74-106) mg/dL Lactic Acid 4.7 H (0.4-2.0) Calcium (8.4-10.2) mg/dL Magnesium (1.6-2.3) mg/dL Total Bilirubin (0.2-1.3) mg/dL AST (14-36) U/L ALT (0-35) U/L Alkaline Phosphatase (38-126) U/L Troponin I 0.032 (0.000-0.034) ng/mL NT-Pro-B Natriuret Pep (0-450) pg/mL Serum Total Protein (6.3-8.2) g/dL Albumin (3.5-5.0) g/dL TSH 3rd Generation (0.47-4.68) mIU/L Influenza Type A Ag (NEGATIVE) Influenza Type B Ag (NEGATIVE) 05/17/20 Range/Units 02:10 WBC (4.0-10.5) K/mm3 RBC (4.1-5.4) M/mm3 Hgb (12.0-16.0) gm/dl Hct (35-47) % MCV (78-100) fl MCH (26-32) pg MCHC (32-36) g/dl RDW (11.5-14.0) % Plt Count (150-450) K/mm3 MPV (7.5-11.0) fl Sodium 119 L* (137-145) mmol/L Potassium 6.7 H* (3.5-5.1) mmol/L Chloride 86 L (98-107) mmol/L Carbon Dioxide 15 L* (22-30) mmol/L Anion Gap 24.0 H (5-15) MEQ/L BUN 87 H (7-17) mg/dL Creatinine 7.12 H (0.52-1.04) mg/dL Estimated GFR 6.6 ML/MIN Glucose 252 H (74-106) mg/dL Lactic Acid (0.4-2.0) Calcium 7.9 L (8.4-10.2) mg/dL Magnesium 1.9 (1.6-2.3) mg/dL Total Bilirubin 0.90 (0.2-1.3) mg/dL AST 89 H (14-36) U/L ALT 26 (0-35) U/L Alkaline Phosphatase 67 (38-126) U/L Troponin I (0.000-0.034) ng/mL NT-Pro-B Natriuret Pep 547 H (0-450) pg/mL Serum Total Protein 7.1 (6.3-8.2) g/dL Albumin 3.6 (3.5-5.0) g/dL TSH 3rd Generation (0.47-4.68) mIU/L Influenza Type A Ag (NEGATIVE) Influenza Type B Ag (NEGATIVE) - Progress Progress: improved Progress Note: 05/17/20 03:43 Patient is a 44-year-old female presented to our ED in septic shock. Patient had acute renal injury with hyperkalemia and metabolic acidosis. Takes infused. Normal saline bolus administered. Mean arterial pressure increased from 47-66. Hyponatremia at 119 addressed with IV fluids. Patient was mildly hypothermic. We initiated passive heating with warm blankets. Influenza a and B+. Hyperkalemia addressed with calcium gluconate D5 4 5 with 75 mEq of bicarb. Insulin glucose administered. Counseled pt/family regarding: lab results, diagnosis, rad results - Departure Departure Disposition: Home Clinical Impression: Septic shock, Hypothermia, Influenza A, Influenza B, Hyponatremia, Hyperkalemia, Acute renal injury, Dehydration, Lactic acidosis, Leukocytosis Condition: Stable Critical Care Time: Yes Critical Care Time(excluding separately billable procedures): Critical 75-104 mins Referrals: KIRSTEN SCRUGGS [Primary Care Provider] -
[2020-05-17 02:53] LABS: Potassium 6.7 mmol/L (3.5-5.1)
[2020-05-17] MEDS ORDERED: Calcium Gluconate 10% 1000 MG IV ONE ×2 (02:56→03:27)
[2020-05-17] MEDS ORDERED: Sodium Bicarbonate 50 MEQ/50 ML VIAL*** 75 MEQ in Dextrose 5% -0.45 NaCl 1000 ML 1,000 ML IV SCH (03:00)
[2020-05-17] MEDS ORDERED: D50W 50ML Vial IV STA (03:01)
[2020-05-17] MEDS ORDERED: HUMULIN R SQ ONE ×2 (03:02→03:40)
[2020-05-17] MEDS ORDERED: LEVOPHED 4 MG/4 ML 4,000 MCG in Dextrose 5%/Water IV Soln. 500 ML 500 ML IV PRN (03:17)
[2020-05-17 03:24] LABS: INFLUENZA A POSITIVE (NEGATIVE)
[2020-05-17 03:25] LABS: INFLUENZA B POSITIVE (NEGATIVE)
[2020-05-17] MEDS ORDERED: Dextrose 5% -0.45 NaCl 1000 ML 1,000 ML IV ONE (03:30)
[2020-05-17] MEDS ORDERED: SODIUM BICARBONATE 50 MEQ/50 ML ABBOJECT IV ONE (03:30)
[2020-05-17 03:31] LABS: Hematocrit 34.1 % (35-47); Hemoglobin 10.8 gm/dl (12.0-16.0); Mean Corpuscular Hemoglobin 27.6 pg (26-32); Mean Corpuscular Hgb Concent. 31.7 g/dl (32-36); Mean Platelet Volume 10.1 fl (7.5-11.0); Platelet Count 578 K/mm3 (150-450); Red Blood Count 3.92 M/mm3 (4.1-5.4); Red Cell Distribution Width 14.8 % (11.5-14.0)
[2020-05-17 03:39] LABS: White Blood Count 25.4 K/mm3 (4.0-10.5)
[2020-05-17] MEDS ORDERED: HUMULIN R ONE (03:43)
[2020-05-17] MEDS ORDERED: D50W 50 ml Abboject IV ONE ×2 (03:44→03:46)
[2020-05-17 04:07] VITALS: O2SAT 100
[2020-05-17 04:14] VITALS: BP 72/45; PULSE 99
--- NOTE | 2020-05-17 08:56 | XRAY ---
Indication: Short of breath. Comparison: March 15, 2020. Portable chest less inflated again demonstrating diffuse chronic interstitial lung markings and right costophrenic angle blunting. No focal infiltrate, consolidation, or large effusion. Heart is borderline enlarged presumed from underinflation. Bony thorax intact again with mild degenerative changes. Impression: Nonacute underinflated chest with chronic features. Comment: Preliminary interpretation was made by [facility]. No critical discrepancy.
[2020-05-17 10:36] LABS: BAND 28 % (0.0-2.0); Lymphocytes 3 % (24-44); Monocyte 2 % (0.0-12.0); Neutrophils 67 % (36.0-66.0); Platelet Estimate INCREASED (NORMAL); Total Cells Counted 100; Toxic Granulation 3+
== END 2020-05-17 04:32 | disposition short-term general hospital (02) ==
LOC: ED 01:47
DX: R53.1 Weakness (principal); R06.02 Shortness of breath; R51.9 Headache, unspecified; E78.5 Hyperlipidemia, unspecified; I10 Essential (primary) hypertension; E11.9 Type 2 diabetes mellitus without complications; N18.2 Chronic kidney disease, stage 2 (mild); R65.21 Severe sepsis with septic shock; T68.XXXA Hypothermia, initial encounter; J10.1 Influenza due to other identified influenza virus with other respiratory manifestations; E87.1 Hypo-osmolality and hyponatremia; E86.0 Dehydration; E87.2 Acidosis; D72.829 Elevated white blood cell count, unspecified; Z79.899 Other long term (current) drug therapy
CPT/HCPCS: 36000; 36415; 71045; 80053; 83605; 83735; 83880; 84443; 84484; 85025; 87040; 87077; 87186; 87400; 93005; 93041; 94760; 96360; 96365; 96367; 96368; 96372; 96374; 96375; 99285; 99291; 99292; J0610; J1720; J1815; J3370

== ENCOUNTER 2020-06-24 05:45 | Day surgery (SDC) | payer MEDICARE ==
[2020-06-24] MEDS ORDERED: BUPIVACAINE 0.5% VIAL IJ ONE ×2 (07:52→07:59)
[2020-06-24] MEDS ORDERED: XYLOCAINE 1% HCL 20 ML MDV ONE ×2 (07:52→07:59)
[2020-06-24] MEDS ORDERED: Lactated Ringers 1,000 ML IV ONE (07:52)
[2020-06-24 10:31] VITALS: BP 146/77; PULSE 100; O2SAT 97
--- NOTE | 2020-06-24 11:39 | OP ---
SURGERY DATE/TIME: 06/24/2020 0803 INDICATION FOR SURGERY: Kenzie is a very pleasant 44 year-old female who has been seeing myself for chronic wounds to the right lower extremity for approximately four or five months now. She has had recurrent infections as well as weekly wound care for an extended period of time. At the three month radha we were planning on operative debridement of the wound. However, she had subsequently become sick multiple times and forced us to have canceled surgery until today. Today, she presents with a chronic ulceration to the great toe of the right foot at the level of the interphalangeal joint as well as the fifth metatarsal where there is a significant amount of undermining and positive probe to bone test. Pathological examination was sent from a wound at the lateral aspect of the fifth metatarsal which demonstrated extremely necrotic tissue in this area including portions of the tendon. At this time the patient has agreed to move forward with surgical intervention. However, she is very sick and understands that anesthesia is a risk and a complication. In order to proceed with the intervention a local block was planned. The patient understands this and agrees with moving forward with the procedure. The patient understands that there are no guarantees as to the outcomes of the procedure and potential complications could be need for continued surgical intervention, possible wound infection, loss of limb and possible loss of life. She understands and agrees to all of this. PREOPERATIVE DIAGNOSES: 1) Chronic diabetic foot ulcer. 2) Osteomyelitis right foot. 3) Chronic kidney disease. 4) Soft tissue infection. POSTOPERATIVE DIAGNOSES: 1) Chronic diabetic foot ulcer. 2) Osteomyelitis right foot. 3) Chronic kidney disease. 4) Soft tissue infection. PROCEDURES: 1) Incision and drainage, bone debridement of the right foot multiple wounds. 2) Abductor digiti minimi muscle transfer. 3) Application of synthetic skin substitute. SURGEON: Demario Aldana DPM. TILE AND MARBLE SETTER: None. ANESTHESIA: Local. HEMOSTASIS: None. Pressure dressing. ESTIMATED BLOOD LOSS: Less than 50 cc. MATERIALS: 2-0 Vicryl, skin april, Integra synthetic skin substitute. INJECTABLES: 40 cc of a 1:1 mixture of 0.5% Marcaine plain and 1% lidocaine plain. DESCRIPTION OF PROCEDURE AND FINDINGS: After adequate assessment by the perioperative team in outpatient holding, the patient was brought into the OR and placed on the OR table in the supine position. At this time attention was directed to the right ankle where a right ankle block was performed consisting of 40 cc of a 1:1 mixture of 1% lidocaine plain and 0.5% Marcaine plain in a ring block type fashion. Following this the right lower extremity was prepped and draped in the typical sterile fashion. Secondary to the fact that she had some open wounds Betadine was utilized to cleanse the lower extremity. At this time attention was directed to the lateral aspect of the right foot where an ulceration was appreciated. This ulceration probes to bone and there was severely necrotic tissue. At this time a 15 blade was utilized to make an incision 3:1 ellipse in order to remove any of the devitalized and necrotic tissue at the lateral aspect of the right foot. Following excision of the skin edges it was apparent that there was severe necrosis in this area which was debrided utilizing a combination of sharp dissection and rongeur dissection. Following this a pulse lavage was utilized to cleanse the area with copious amounts of sterile saline. At this time attention was then directed back to the wound where it was identified that the abductor digiti minimi muscle was exposed in the surgical wound at the plantar aspect of the wound. The pedicles were identified at its proximal extent and the muscle was resected distally and flapped over the exposed bone and tendon at this time in order to allow for increased blood supply to the wound healing area as well as provide for a base for our split thickness skin substitute. At this time following resection, a 2-0 Vicryl was utilized to pin the resected muscle belly to the dorsal portion of the periosteum of the styloid of the fifth metatarsal as well as the subcutaneous tissue overlying this periosteum. At this time the muscle belly was exposed in the wound site and covered the wound in total. Following this pulse lavage was utilized again for approximately 0.5 of a liter in order to cleanse the muscle belly once more prior to applying the synthetic skin substitute. At this time the Integra graft was placed in sterile saline for approximately one minute and was cut to size in order to cover the entirety of the wound with no more than 3 mm overhang on every edge this was secured utilizing skin stapler. Following the pulse lavage rongeurs were utilized to remove a portion of the styloid process of the bone at the lateral aspect of the foot this was sent off the field in two separate samples for pathological assessment and microbiological assessment. At this time addition soft tissue cultures were obtained. Following this attention was then directed to the wound at the first great toe where a margin of approximately 2 mm was resected exposing the underlying wound and the devitalized and necrotic tissue at the base of the wound as well as devitalized tissue at the wound edges. Following this a pulse lavage was utilized to cleanse the area and the remaining portion of the Integra split thickness skin graft was utilized over the wound in this area. At this time a skin stapler was utilized to secure the graft in the site. Bolster dressings were used for both of these sites in order to have good apposition of the graft against the wound base. Following this Adaptic was applied to both wounds, 4x4's, Kerlix and 4 inch TEDDY was applied to the right lower extremity. Following this the patient was returned to the outpatient surgery area with vital signs stable and vascular status intact. The patient handled the procedure without significant complications. Patient understands that she will have to be partial weight-bearing potentially to the heel. However I recommend that she tries to be as nonweight-bearing as possible. Prescriptions were written for a walker as well as a wheelchair in order for her to ambulate. All remaining postoperative orders as written in the postoperative orders in the patient's chart.
== END 2020-06-24 09:40 | disposition home or self-care (01) ==
LOC: SDC 05:45
PROVIDERS: ATTEND Podiatrist Foot & Ankle Surgery
DX: E11.621 Type 2 diabetes mellitus with foot ulcer (principal); M86.171 Other acute osteomyelitis, right ankle and foot; E11.22 Type 2 diabetes mellitus with diabetic chronic kidney disease; I12.9 Hypertensive chronic kidney disease with stage 1 through stage 4 chronic kidney disease, or unspecified chronic kidney disease; N18.9 Chronic kidney disease, unspecified; L08.9 Local infection of the skin and subcutaneous tissue, unspecified
CPT/HCPCS: 82947; 87070; 87077; 87186